=== PATIENT | female | born 1990 | race Two or more races ===

== ENCOUNTER 2024-08-22 21:46 | Emergency (ER) | payer MEDICAID, SELFPAY ==
[2024-08-22 21:48] VITALS: BMI 38.2
[2024-08-22 21:56] VITALS: BP 158/99; PULSE 96; RESP 18; TEMP 37.4; O2SAT 98
--- NOTE | 2024-08-22 22:00 | XR_ITS ---
Examination: Foot, right, 3 views Technique: AP, oblique, lateral views foot, 3 views Date and time of exam: August 22, 2024 1009 hours INDICATIONS: Laceration to the foot today with fifth digit pain. FINDINGS: No fracture or dislocation. No opaque foreign body IMPRESSION: No opaque foreign body
--- NOTE | 2024-08-23 00:55 | PD.EDWOUND ---
ED Wound/Laceration-RME/HPI General Chief Complaint: Wound/Laceration Stated Complaint: LAC R 5TH TOE Time Seen by Provider: 08/22/24 21:53 Arrival date/time: 08/22/24 21:46 This is a case of 34-year-old female who came in in the emergency room due to 2 cm laceration on the distal third of the fifth toe right foot 1 hour prior to arrival in the emergency room and the patient accidentally stump his toe on a door sustaining laceration and injury no other injury noted tetanus shot is up-to-date Limitations: no limitations Related Data Home Medications ?Medication ?Instructions ?Recorded ?Confirmed buspirone PO 06/21/19 06/21/19 lisinopril PO 06/21/19 06/21/19 phentermine PO 06/21/19 06/21/19 Previous Rx's ?Medication ?Instructions ?Recorded azithromycin 500 mg tablet See Rx Instructions PO .COMPLEX #6 12/18/19 tabs clindamycin HCl 300 mg capsule 300 mg PO Q8H #21 caps 11/15/21 cephalexin 500 mg capsule 500 mg PO Q8H #30 caps 08/23/24 mupirocin 2 % topical ointment 1 applic topical BID #22 grams 08/23/24 Allergies Allergy/AdvReac Type Severity Reaction Status Date / Time latex Allergy Severe Hives Verified 08/22/24 21:51 sulfamethoxazole (From Allergy Severe Rash Verified 08/22/24 21:51 Bactrim) trimethoprim (From Bactrim) Allergy Severe Rash Verified 08/22/24 21:51 Review of Systems Review of Systems Systems Reviewed: All systems reviewed, normal except as documented Constitutional Constitutional: Reports system reviewed and no additional complaints, except as documented ENT Ears, Nose, Mouth, and Throat: Denies neck pain Cardiovascular Cardiovascular: Reports system reviewed and no additional complaints, except as documented and Reports as per HPI Respiratory Respiratory: Reports system reviewed and no additional complaints, except as documented and Reports as per HPI Gastrointestinal Gastrointestinal: Reports system reviewed and no additional complaints, except as documented and Reports as per HPI Musculoskeletal Musculoskeletal: Reports system reviewed and no additional complaints, except as documented, Reports as per HPI, Denies abnormal gait, Denies arthralgias, Denies atrophy, Denies back pain, Denies deformity, Denies joint swelling, Reports limited range of motion, Denies loss of height, Denies muscle cramps, Denies muscle weakness, Denies myalgias, Denies neck pain, Denies numbness, Denies radiating pain into limb, Denies stiffness and Denies tingling Neurologic Neurologic: Reports system reviewed and no additional complaints, except as documented, Reports as per HPI, Denies abnormal gait, Denies numbness and Denies tingling Past Medical History Past Medical History CARDIAC: Negative Cardiac Disorders or Congestive Heart Failure RESPIRATORY: Negative Chronic Obstructive Pulmonary Disease (COPD) or Asthma GENITOURINARY: Negative Renal Disease ENDOCRINE: Negative Diabetes Mellitus Type 1 or Diabetes Mellitus Type 2 HEMATOLOGIC: Negative Sickle Cell Disease Social History SMOKING STATUS: Never smoker ED Exam General Limitations: Present no limitations General appearance: Present alert and in no apparent distress Head Head exam: Present atraumatic, normocephalic and normal inspection Eye Eye exam: Present normal appearance, PERRL and EOMI ENT ENT exam: Present normal exam, normal oropharynx and mucous membranes moist Neck Neck exam: Present normal inspection, full ROM and trachea midline; Absent tenderness, meningismus or lymphadenopathy Chest Chest inspection: Present normal inspection and symmetric chest wall rise; Absent tenderness, rash or abscess Respiratory Respiratory exam: Present normal lung sounds bilaterally; Absent respiratory distress, wheezes, stridor, accessory muscle use or prolonged expiratory phase Cardiovascular Cardiovascular exam: Present regular rate, normal rhythm and normal heart sounds Abdominal Exam Abdominal exam: Present soft and normal bowel sounds Extremities Exam Extremities exam: Present normal inspection and full ROM Back Exam Back exam: Present normal inspection and full ROM Neurological Exam Neurological exam: Present alert, oriented X3, CN II-XII intact, normal gait and reflexes normal; Absent motor sensory deficit Psychiatric Psychiatric exam: Present normal affect and normal mood Skin Skin exam: Present warm, dry, intact, normal color and other (2 cm laceration fifth toe right foot minimal bleeding no foreign body no tendon no bone no muscle injury ROM intact neurovascular intact nail is intact) Course Quality Measures none Orders Category Date Time Status XR foot comp RT min 3V Stat Exams 08/22/24 22:00 Completed Vital Signs Vital signs: Vital Signs Temperature 99.4 F 08/22/24 21:56 Pulse Rate 96 08/22/24 21:56 Respiratory Rate 18 08/22/24 21:56 Blood Pressure 158/99 H 08/22/24 21:56 Pulse Oximetry (%) 98 08/22/24 21:56 Oxygen Delivery Method Room Air 08/22/24 21:56 Oxygen saturation 98% in room air normal Procedures -ED Laceration Laceration 1: Site: other (Right 5th toe ) Side (If applicable): right Size (cm): 2 Description: stellate Depth: simple, single layer Local Anesthetic: lidocaine 1% Amount of anesthesia used (mL): 4 Pre-repair: irrigated extensively Skin layer closed with: nylon Suture size (cm): 4-0 Number of sutures: 3 Technique: simple, interrupted Wound / Laceration MDM Narrative MDM Narrative:: This is a case of 34-year-old female who came in in the emergency room due to 2 cm laceration on the distal third of the fifth toe right foot 1 hour prior to arrival in the emergency room and the patient accidentally stump his toe on a door sustaining laceration and injury no other injury noted tetanus shot is up-to-date physical examination patient is awake alert oriented not in distress not toxic looking noted 2 cm laceration fifth toe right foot minimal bleeding no foreign body no tendon no bone no muscle injury ROM intact neurovascular intact nail is intact laceration repair was performed patient tolerated well procedure no complication noted bleeding controlled procedure done via [place] protocol and via sterile technique patient was discharged with cephalexin and mupirocin ointment to prevent infection patient will follow-up with PCP in 2 days for wound check and in 10 days for removal of suture for any signs and symptoms of infection she was informed to return in the emergency room immediately or call 911 patient agreed with the treatment plan and discharge patient understood the discharge instruction Patient was discharged with comfortable condition walking with stable gait. Patient verbalized no further complains explained diagnosis and answered patient question. Patient is comfortable with the proposed management plan including the need to follow up with his/her primary care physician and any specialist if applicable Discussed patient for any urgent condition or worsening sx, He/She needed to go to emergency room immediately or call 911. Patient acknowledge the responsibility to follow up as instructed and to monitor her/his symptoms. For any persistence of the symptoms for more than 3-5 days return precaution advised. Discussed the result of the test and was given printed discharge instruction Patient data External records reviewed:: [facility] previous records and Other (specify) Clinical information provided by:: patient Social determinants that could affect healthcare access:: none Patient has the following chronic illnesses:: None How is presenting disease/condition affected by chronic disease/condition?: no chronic disease Evaluation data The following diagnostics were reviewed and interpreted by me:: radiology exam(s) and other (specify) Lab and/or radiology exams considered but not ordered:: Reviewed Interpretation Summary: Reviewed Medications / Prescriptions Medications or Prescriptions considered but not ordered:: Given Medication administrations:: Given Consultations Consultation(s) initiated? (list below): No Diagnosis Wound Differential Diagnosis: laceration Most likely diagnosis given after review of the tests above:: Laceration Admission Indicated Admission indicated?: not indicated Explain why admission is indicated or not indicated:: Not indicated Admission Request Was there a request for admission?: No Admission Attestation Admission request attestation: Not indicated Disposition Plan Disposition Plan: Discharge Discharge Attestation Discharge Attestation: The patient and all family members were given an opportunity to ask questions and understood the discharge instructions. Discharge instructions specifically effects, indications for sooner follow up or return to the emergency department, and the expected course of current diagnosis. Patient condition: Stable Discharge Plan Plan Patient Disposition: HOME (Self Care) Prescriptions/Referrals Prescriptions/Med Rec: New cephalexin 500 mg capsule 500 mg PO Q8H Qty: 30 0RF mupirocin 2 % ointment 1 applic topical BID Qty: 22 0RF No Action lisinopril PO phentermine PO buspirone PO azithromycin 500 mg tablet See Rx Instructions .ROUTE .COMPLEX Qty: 6 0RF Rx Instructions: take 500 mg today (day 1), then 250 mg for 4 days (days 2-5) clindamycin HCl 300 mg capsule 300 mg PO Q8H Qty: 21 0RF Referrals: No Primary/Family,Physician [Primary Care Provider] - In 1 week Problem List Clinical Impression: Laceration of toe Patient/Caregiver Discharge Instructions Education Materials: ED Laceration, Foot: All Closures Additional Instructions: Follow-up with your primary care physician in 2 days for reevaluation and wound check and removal of suture in 10 days for any signs and symptoms of infection redness swelling discharge from the wound pain fever chills or any worsening symptoms or any emergent concern return to the emergency room immediately or call 911 keep the wound clean and dry take your medication and finish the course of antibiotic Print Language: Romanian Stand Alone Forms: Arina Award Info., Work/School Release, Patient Portal Info Letter MARIA L/ALY Supervising Physician MARIA L/ALY Supervising Physician: dr luna
== END 2024-08-23 01:28 | disposition home or self-care (01) ==
PROVIDERS: Emergency Provider Emergency Medicine
DX: S91.114A Laceration without foreign body of right lesser toe(s) without damage to nail, initial encounter (principal); W22.8XXA Striking against or struck by other objects, initial encounter
CPT/HCPCS: 12002; 73630; 99283